=== PATIENT | male | born 1985 | race Caucasian/White ===

== ENCOUNTER → 2017-05-23 | Outpatient (CLI) | payer OTHER ==
[2017-05-23 14:59] LABS: ABSOLUTE BASOPHILS # (AUTO) 0.1 10^3/uL (0.0-0.2); ABSOLUTE EOSINOPHILS # (AUTO) 0.1 10^3/uL (0.0-0.6); ABSOLUTE LYMPHOCYTES (AUTO) 1.3 10^3/uL (0.5-4.7); ABSOLUTE MONOCYTES (AUTO) 0.3 10^3/uL (0.1-1.4); ABSOLUTE NEUT (AUTO) 5.3 10^3/uL (1.7-8.2); BASOPHILS % (AUTO) 1.2 % (0-2); EOSINOPHILS % (AUTO) 1.8 % (0-6); HEMATOCRIT 46.8 % (37.9-51.0); HEMOGLOBIN 16.1 g/dL (13.5-17.0); LYMPHOCYTES % (AUTO) 17.9 % (13-45); MEAN CORPUSCULAR HEMOGLOBIN 29.9 pg (27.0-33.4); MEAN CORPUSCULAR HGB CONC 34.5 g/dL (32.0-36.0); MEAN CORPUSCULAR VOLUME 87 fl (80-97); MONOCYTES % (AUTO) 4.2 % (3-13); PLATELET COUNT 357 10^3/uL (150-450); RED BLOOD COUNT 5.39 10^6/uL (4.35-5.55); RED CELL DISTRIBUTION WIDTH 12.7 % (11.5-14.0); SEGMENTED NEUTROPHILS % (AUTO) 74.9 % (42-78); TOTAL CELLS COUNTED % (AUTO) 100 %; WHITE BLOOD COUNT 7.1 10^3/uL (4.0-10.5)
[2017-05-23 15:09] LABS: APPEARANCE,URINE CLEAR; BILIRUBIN,URINE NEGATIVE (NEGATIVE); COLOR,URINE YELLOW; GLUCOSE, URINE 50 mg/dL (NEGATIVE); KETONES,URINE NEGATIVE (NEGATIVE); LEUKOCYTE ESTERASE,URINE NEGATIVE (NEGATIVE); NITRITE,URINE NEGATIVE (NEGATIVE); PROTEIN,URINE NEGATIVE (NEGATIVE); URINE SPECIFIC GRAVITY 1.008; UROBILINOGEN,URINE NEGATIVE mg/dL (<2.0)
[2017-05-23 15:20] LABS: ANION GAP 10 (5-19); BLOOD UREA NITROGEN 9 mg/dL (7-20); CALCIUM 9.7 mg/dL (8.4-10.2); CARBON DIOXIDE 29 mmol/L (22-30); CHLORIDE 104 mmol/L (98-107); CHOLESTEROL 185.37 mg/dL (0-200); GLUCOSE 80 mg/dL (75-110); POTASSIUM 4.7 mmol/L (3.6-5.0); SODIUM 143.1 mmol/L (137-145); TRIGLYCERIDES 125 mg/dL (<150); URIC ACID 6.1 mg/dL (3.5-8.5)
[2017-05-23 15:31] LABS: DIRECT LDL 87 mg/dL (<100)
== END ==
LOC: CCC 14:02
DX: E11.8 Type 2 diabetes mellitus with unspecified complications (principal)
CPT/HCPCS: 36415; 80048; 80061; 81001; 83036; 84550; 85025

== ENCOUNTER → 2018-08-16 | Outpatient (CLI) | payer OTHER ==
[2018-08-16 15:59] LABS: ALANINE AMINOTRANSFERASE 27 U/L (21-72); ALBUMIN 3.9 g/dL (3.5-5.0); ALKALINE PHOSPHATASE 70 U/L (38-126); ANION GAP 8 (5-19); ASPARTATE AMINO TRANSFERASE 14 U/L (17-59); BILIRUBIN,DIRECT 0.2 mg/dL (0.0-0.4); BILIRUBIN,TOTAL 0.8 mg/dL (0.2-1.3); BLOOD UREA NITROGEN 6 mg/dL (7-20); CALCIUM 9.3 mg/dL (8.4-10.2); CARBON DIOXIDE 27 mmol/L (22-30); CHLORIDE 104 mmol/L (98-107); CHOLESTEROL 181.82 mg/dL (0-200); GLUCOSE 213 mg/dL (75-110); POTASSIUM 4.6 mmol/L (3.6-5.0); SODIUM 138.7 mmol/L (137-145); TOTAL PROTEIN 6.2 g/dL (6.3-8.2); TRIGLYCERIDES 130 mg/dL (<150)
[2018-08-16 16:10] LABS: DIRECT LDL 118 mg/dL (<100)
[2018-08-18 11:37] LABS: CREATININE URINE 223.4 mg/dL (Not Estab.); MICROALBUMIN URINE 7.8 ug/mL (Not Estab.)
== END ==
LOC: OD 14:40
DX: E11.8 Type 2 diabetes mellitus with unspecified complications (principal)
CPT/HCPCS: 36415; 80053; 80061; 82043; 82570; 83036

== ENCOUNTER 2019-04-23 21:19 | Emergency (ER) | payer SELFPAY ==
--- NOTE | 2019-04-23 23:25 | RADIOLOGY REPORT (SQ) ---
EXAM DESCRIPTION: XR CHEST 1 VIEW COMPLETED DATE/TME: 04/23/2019 22:37 CLINICAL HISTORY: 34 years, Male, htn COMPARISON: None. NUMBER OF VIEWS: 1 TECHNIQUE: Portable chest LIMITATIONS: None. FINDINGS: Heart size is normal. Lungs are clear. No pneumothorax IMPRESSION: Negative chest copyright 2011 [employer]- All Rights Reserved
[2019-04-23] MEDS ORDERED: ACETAMINOPHEN 325 MG TABLET PO ONE (23:28)
[2019-04-23 23:43] LABS: ABSOLUTE LYMPHOCYTES (AUTO) 0.6 10^3/uL (0.5-4.7); ABSOLUTE MONOCYTES (AUTO) 0.7 10^3/uL (0.1-1.4); ABSOLUTE NEUT (AUTO) 5.3 10^3/uL (1.7-8.2); BASOPHILS % (AUTO) 0.6 % (0-2); EOSINOPHILS % (AUTO) 0.3 % (0-6); HEMATOCRIT 40.8 % (37.9-51.0); HEMOGLOBIN 14.7 g/dL (13.5-17.0); LYMPHOCYTES % (AUTO) 9.1 % (13-45); MEAN CORPUSCULAR HEMOGLOBIN 30.7 pg (27.0-33.4); MEAN CORPUSCULAR HGB CONC 35.9 g/dL (32.0-36.0); MEAN CORPUSCULAR VOLUME 86 fl (80-97); MONOCYTES % (AUTO) 10.2 % (3-13); PLATELET COUNT 269 10^3/uL (150-450); RED BLOOD COUNT 4.78 10^6/uL (4.35-5.55); RED CELL DISTRIBUTION WIDTH 12.7 % (11.5-14.0); SEGMENTED NEUTROPHILS % (AUTO) 79.8 % (42-78); TOTAL CELLS COUNTED % (AUTO) 100 %; WHITE BLOOD COUNT 6.7 10^3/uL (4.0-10.5)
[2019-04-23] MEDS ORDERED: NORMAL SALINE 1000 ML 1,000 ML IV ONE (23:49)
--- NOTE | 2019-04-23 23:50 | ER Document Report ---
Entered by NISHA PAINTER SCRIBE 04/23/19 [id number] Acting as scribe for:ALON VALLE DO ED General - General Chief Complaint: Fever Stated Complaint: FEVER Time Seen by Provider: 04/23/19 22:35 Primary Care Provider: [facility] [NO LOCAL MD] - Follow up as needed Information source: Patient Notes: This 34-year-old male with diabetes mellitus type 1 presents to the emergency department complaining of a cough for the past 5 days. Patient describes the cough as non-productive and dry. Patient reports a fever for the past 2 days with an associated headache. Patient denies nausea, vomiting and abdominal pain. Patient denies sick contact. Patient took tylenol at 4pm today (7 hours ago). Patient has not had insulin all day. TRAVEL OUTSIDE OF THE [place] IN LAST 30 DAYS: No - Related Data Allergies/Adverse Reactions: No Known Drug Allergies Allergy (Verified 11/02/12 07:54) bee and wasp stings Allergy (Uncoded 11/02/12 07:54) Home Medications: insulin Past Medical History - General Information source: Patient - Social History Smoking Status: Never Smoker Cigarette use (# per day): No Chew tobacco use (# tins/day): No Family History: CAD, DM, Malignancy Patient has suicidal ideation: No Patient has homicidal ideation: No Endocrine Medical History: Reports: Hx Diabetes Mellitus Type 1 Past Surgical History: Reports: Hx Orthopedic Surgery - left foot, Hx Ton sillectomy - Immunizations Immunizations up to date: Yes Hx Diphtheria, Pertussis, Tetanus Vaccination: Yes Review of Systems - Review of Systems Constitutional: See HPI, Fever EENT: No symptoms reported Cardiovascular: No symptoms reported Respiratory: See HPI, Cough Gastrointestinal: See HPI. denies: Abdominal pain, Nausea, Vomiting Genitourinary: No symptoms reported Male Genitourinary: No symptoms reported Musculoskeletal: No symptoms reported Skin: No symptoms reported Hematologic/Lymphatic: No symptoms reported Neurological/Psychological: See HPI, Headaches -: Yes All other systems reviewed and negative Physical Exam - Vital signs Vitals: Temp Pulse Ox 102.0 F H 96 04/23/19 23:16 04/23/19 23:16 - Notes Notes: Physical Exam: General: Alert, appears well. HEENT: Normocephalic. Atraumatic. PERRL. Extraocular movements intact. Oropharynx clear. Dry mucous membranes. Neck: Supple. Non-tender. Respiratory: Mild respiratory distress. Clear and equal breath sounds bilaterally. Cardiovascular: Mildly Tachycardic. Abdominal: Obese. Non-tender. No distension. Normal Bowel Sounds. Back: No gross abnormalities. Extremities: Moves all four extremities. Upper extremities: Normal inspection. Normal ROM. Lower extremities: Normal inspection. No edema. Normal ROM. Neurological: Normal cognition. AAOx4. Normal speech. Psychological: Normal affect. Normal Mood. Skin: Warm. Dry. Normal color. Course - Re-evaluation Re-evalutation: 04/24/19 00:58 MDM 34 year old male arrives with feeling sick for about 5 days. Fever, chills and nonproductive cough today. Some sob. Fever 102 here and uncomfortable but nontoxic in appearance. Given IVF here and due to - flu and current pandemic will send covid-19. Discussed with pt the importance of self quarantine and that department of health will follow up. He expressed understanding. - Vital Signs Vital signs: Temp Pulse Resp BP Pulse Ox 99.0 F 19 95 04/24/19 02:20 04/23/19 23:53 04/23/19 23:53 - Laboratory Result Diagrams: 04/23/19 23:28 04/23/19 23:28 Laboratory results interpreted by me: 04/23/19 04/23/19 04/24/19 23:28 23:28 00:18 Lymph % (Auto) 9.1 L Seg Neutrophils % 79.8 H Sodium 135.3 L Glucose 173 H POC Glucose 128 H Discharge - Discharge Clinical Impression: Acute febrile illness Diabetes mellitus Qualifiers: Diabetes mellitus type: type 1 Diabetes mellitus complication status: with other specified complication Qualified Code(s): E10.69 - Type 1 diabetes mellitus with other specified complication Condition: Good Disposition: HOME, SELF-CARE Instructions: Acetaminophen, Fever ([facility]), Viral Syndrome ([facility]) Additional Instructions: Self Quarantine until at least your test results are back and negative. Take tylenol or ibuprofen for fever or aches. Please return here for increasing shortness of breath or other concerns. Referrals: [facility] [NO LOCAL MD] - Follow up as needed I personally performed the services described in the documentation, reviewed and edited the documentation which was dictated to the scribe in my presence, and it accurately records my words and actions.
[2019-04-24] LABS: A TYPE INFLUENZA AG NEGATIVE (NEGATIVE); B INFLUENZA AG NEGATIVE (NEGATIVE)
[2019-04-24 00:02] LABS: ALBUMIN 3.8 g/dL (3.5-5.0); ALKALINE PHOSPHATASE 68 U/L (38-126); ANION GAP 9 (5-19); ASPARTATE AMINO TRANSFERASE 18 U/L (17-59); BILIRUBIN,DIRECT 0.1 mg/dL (0.0-0.4); BILIRUBIN,TOTAL 1.2 mg/dL (0.2-1.3); BLOOD UREA NITROGEN 17 mg/dL (7-20); CALCIUM 9.1 mg/dL (8.4-10.2); CARBON DIOXIDE 25 mmol/L (22-30); CHLORIDE 101 mmol/L (98-107); GLUCOSE 173 mg/dL (75-110); POTASSIUM 3.8 mmol/L (3.6-5.0); TOTAL PROTEIN 6.5 g/dL (6.3-8.2)
[2019-04-24] MEDS ORDERED: IBUPROFEN 800 MG TABLET PO ONE (01:49)
[2019-04-24 10:18] VITALS: BP 108/57
== END 2019-04-24 10:17 | disposition home or self-care (01) ==
LOC: ER 21:19
DX: R50.9 Fever, unspecified (principal); E10.69 Type 1 diabetes mellitus with other specified complication; R05 Cough; R51 Headache; Z79.899 Other long term (current) drug therapy; Z88.8 Allergy status to other drugs, medicaments and biological substances; Z79.4 Long term (current) use of insulin; R06.02 Shortness of breath; Z20.828 Contact with and (suspected) exposure to other viral communicable diseases
CPT/HCPCS: 99284; 96360; 36415; 82962; 85025; 87635; 80053; 87804; 71045; J7030